=== PATIENT | male | born 1950 | race Caucasian/White ===

== ENCOUNTER 2020-03-24 16:28 | Emergency (ER) | payer MEDICARE, BC ==
[~2020-03-24 16:28] MED LIST: PROPOFOL 200 MG/20 ML VIAL ONE; Rocuronium Bromide 10 MG/ML (10ML VIAL) ONE; Sodium Chloride 0.9% 1,000 ML BAG ONE; Succinylcholine 200 MG/10 ml SYRINGE FS ONE
[2020-03-24] MEDS ORDERED: methylPREDNISolone Sod Succ/PF 125 MG/2 ML VIAL ONE (16:36)
[2020-03-24] MEDS ORDERED: Sodium Chloride 0.9% 1,000 ML ONE (16:36)
[2020-03-24 16:44] LABS: #Basophils 0.1 thou/uL (0.0-0.2); #Lymphocytes 3.2 thou/uL (1.20-3.40); #Monocytes 0.7 thou/uL (0.11-0.59); #Neutrophils 5.2 thou/uL (1.40-6.50); %Basophils 1.6 % (0.0-1.0); %Eosinophils 0.3 % (0.0-10.0); %Lymphocytes 34.3 % (21.0-51.0); %Monocytes 7.9 % (0.0-10.0); %Neutrophils 55.9 % (42.0-75.0); Hemoglobin 15.3 g/dL (14.0-18.0); Mean Corpuscular HGB CONC 32.1 g/dL (32.0-36.0); Mean Corpuscular Hemoglobin 28.8 pg (27.0-31.0); Mean Corpuscular Volume 89.9 fL (78.0-98.0); Mean Platelet Volume 7.7 fL (7.4-10.4); Platelet Count 229 thou/uL (130-400); Red Blood Cell (RBC) Count 5.32 mill/uL (4.70-6.10); White Blood Cell (WBC) Count 9.3 thou/uL (4.8-10.8)
[2020-03-24] MEDS ORDERED: Ketamine 50 MG/ML (10ML VIAL) ONE (16:46)
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
[2020-03-24] MEDS ORDERED: Lidocaine 1% w/Epinephrine 1:100K 20 ML VIAL ONE (16:47)
[2020-03-24 16:57] LABS: ALT (SGPT) 26 U/L (8-55); AST (SGOT) 38 U/L (5-34); Albumin 4.4 g/dL (3.4-4.8); Alkaline Phosphatase 86 U/L (40-110); Anion Gap 22 mmol/L (10-20); BUN (Urea Nitrogen) 25 mg/dL (8.4-25.7); Bilirubin, Total 0.5 mg/dL (0.2-1.2); Calc. Creatinine Clearance 0 mL/min (70-130); Calcium 10.1 mg/dL (7.8-10.44); Carbon Dioxide 24 mmol/L (23-31); Chloride 102 mmol/L (98-107); Globulin 3.2 g/dL (2.4-3.5); Glucose 135 mg/dL (83-110); Potassium 4.8 mmol/L (3.5-5.1); Protein, Total 7.6 g/dL (5.8-8.1); Sodium 143 mmol/L (136-145)
[2020-03-24] MEDS ORDERED: Dextrose 5 % And 0.9 % NaCl 1,000 ML ONE (17:37)
[2020-03-24] MEDS ORDERED: Propofol 1,000 MG/100 ML VIAL IV ONE (17:37)
--- NOTE | 2020-03-24 18:21 | RAD ---
PORTABLE CHEST: 03/24/20 HISTORY: Respiratory distress. COMPARISON: Earlier exam of same day. There has been interval placement of a tracheostomy tube. Extensive subcutaneous emphysema is present . It overlies both the chest and in the neck region. It is increased as compared to the previous exam ination. Pneumomediastinum is present. The lungs appear clear of infiltrates. IMPRESSION: Worsening subcutaneous emphysema over the neck and chest region. Placement of a tracheostomy tube [facility] appears to be in satisfactory position. POS: OFF
[2020-03-24] MEDS ORDERED: Norepinephrine 4 MG/4 ML VIAL ONE (18:23)
== END 2020-03-24 18:59 | disposition short-term general hospital (02) ==
LOC: MADERS 16:28
DX: S17.9XXA Crushing injury of neck, part unspecified, initial encounter (principal); E11.9 Type 2 diabetes mellitus without complications
CPT/HCPCS: 31605; 71045; 80053; 84484; 85025; 85730; 96365; 96372; 96375; 96376; 99292; J2704; J2930; J7042; J7050